=== PATIENT | female | born 1980 | race Caucasian/White ===

== ENCOUNTER 2017-11-20 16:30 | Emergency (ER) | payer BC, SELFPAY ==
[2017-11-20 17:18] LABS: Bilirubin Negative (Negative); Blood, Urine Moderate (Negative); Clarity TURBID (Clear); Glucose, Urine (Dipstick) Negative (Negative); Leukocyte Moderate (Negative); Nitrite Negative (Negative); Protein, Urine (Dipstick) 30 mg/dL (Neg-Trace); Specific Gravity, Urine 1.021 (1.002-1.036)
[2017-11-20 17:21] LABS: RBC/HPF GREATER THAN 50-TNTC HPF (0-3)
[2017-11-20 17:37] LABS: Hyaline Casts/LPF 0-3 HYALINE CAST LPF (0-3 Hyaline); Other Casts/LPF None Seen LPF (0-3 Hyaline)
[2017-11-20 17:38] LABS: Bacteria/HPF 2+ HPF (None Seen); Crystals/HPF 1+ AMORPH PHOS HPF (Negative)
[2017-11-20] MEDS ORDERED: Morphine 10 MG/ML VIAL ONE (18:00)
[2017-11-20 18:06] LABS: #Eosinphils 0.1 thou/uL (0.0-0.7); #Lymphocytes 2.9 thou/uL (1.20-3.40); #Monocytes 0.7 thou/uL (0.11-0.59); #Neutrophils 6.4 thou/uL (1.40-6.50); %Basophils 0.4 % (0.0-1.0); %Lymphocytes 28.4 % (21.0-51.0); %Monocytes 6.8 % (0.0-10.0); %Neutrophils 63.4 % (42.0-75.0); Hemoglobin 12.8 g/dL (12.0-16.0); Mean Corpuscular HGB CONC 32.5 g/dL (32.0-36.0); Mean Corpuscular Hemoglobin 25.6 pg (27.0-31.0); Mean Corpuscular Volume 78.6 fL (78.0-98.0); Platelet Count 295 thou/uL (130-400); RBC Distribution Width 12.8 % (11.5-14.5); Red Blood Cell (RBC) Count 5.02 mill/uL (4.20-5.40)
[2017-11-20] MEDS ORDERED: Ondansetron HCl/PF 4 MG/2 ML Vial ONE (18:15)
[2017-11-20 18:49] LABS: Pregnancy Test - Urine (BHCG) Negative (Negative); Pregu Control Background? CLEAR/WHITE (CLR/WHITE); Pregu Control Bar Appear? YES (CONTROL BAR); Specific Gravity 1.021 (1.002-1.036)
[2017-11-20 18:51] LABS: ALT (SGPT) 19 U/L (8-55); AST (SGOT) 18 U/L (5-34); Albumin 4.2 g/dL (3.5-5.0); Alkaline Phosphatase 78 U/L (40-150); Anion Gap 17 mmol/L (10-20); BUN (Urea Nitrogen) 15 mg/dL (7.0-18.7); Bilirubin, Total Less than 0.2 mg/dL (0.2-1.2); Calc. Creatinine Clearance 0 mL/min (70-130); Calcium 9.5 mg/dL (7.8-10.44); Carbon Dioxide 18 mmol/L (22-29); Chloride 109 mmol/L (98-107); Estimated GFR-MDRD 79; Glucose 114 mg/dL (70-105); Potassium 4.5 mmol/L (3.5-5.1); Protein, Total 7.2 g/dL (6.0-8.3); Sodium 139 mmol/L (136-145)
[2017-11-20] MEDS ORDERED: Ketorolac Tromethamine 30 MG/ML VIAL ONE (19:13)
[2017-11-20] MEDS ORDERED: Morphine 4 MG/ML VIAL ONE ×2 (19:13→22:56)
--- NOTE | 2017-11-20 21:48 | CT ---
CT OF ABDOMEN AND PELVIS PERFORMED WITHOUT CONTRAST ENHANCEMENT: 11/20/17 HISTORY: Severe right sided back pain onset 20 minutes prior to admission. Lung bases show some minimal linear atelectasis. The liver, spleen, pancreas and gallbladder regions appear unremarkable on this noncontrast study. Right and left adrenal glands are normal. Right and left kidneys are normal in size. There are no mariana al calculi. There is some mild right sided hydronephrosis and some dilatation to the right ureter. Th e distal course of the ureter is difficult to visualize but there does appear to be an approximately 3 mm calcification near the right ureterovesical junction very suspicious for a right UV junction stan culus. There is no significant periaortic or mesenteric adenopathy. A retroaortic left renal vein is incidentally seen. CT OF PELVIS PERFORMED WITHOUT CONTRAST ENHANCEMENT: The appendix is normal. No adenopathy, mass or free fluid. IMPRESSION: Approximately 3 mm right ureterovesical junction calculus associated with some mild right sided hydro nephrosis. POS: [facility]
== END 2017-11-20 23:04 | disposition home or self-care (01) ==
LOC: ERS 16:30
DX: N13.2 Hydronephrosis with renal and ureteral calculous obstruction (principal); F17.210 Nicotine dependence, cigarettes, uncomplicated; F41.9 Anxiety disorder, unspecified; F32.9 Major depressive disorder, single episode, unspecified; Z79.899 Other long term (current) drug therapy
CPT/HCPCS: 74176; 80053; 81003; 81015; 81025; 83690; 85025; 87086; 96361; 96374; 96375; 96376; J1885; J2270; J2405

== ENCOUNTER 2019-12-28 08:34 | Outpatient (CLI) | payer BC | END 2019-12-28 08:35 | disposition home or self-care (01) | LOC: DTY/OP 08:34 | PROVIDERS: ATTEND Surgery | DX: E66.01 Morbid (severe) obesity due to excess calories (principal) | CPT/HCPCS: 97802 ==

== ENCOUNTER 2020-01-24 12:35 | Outpatient (CLI) | payer BC | END 2020-01-24 12:36 | disposition home or self-care (01) | LOC: DTY/OP 12:35 | PROVIDERS: ATTEND Surgery | DX: E66.01 Morbid (severe) obesity due to excess calories (principal) | CPT/HCPCS: 97802 ==

== ENCOUNTER 2020-03-22 13:38 | Outpatient (CLI) | payer BC, OTHER | END 2020-03-22 13:39 | disposition home or self-care (01) | LOC: DTY/OP 13:38 | PROVIDERS: ATTEND Surgery | DX: E66.01 Morbid (severe) obesity due to excess calories (principal) | CPT/HCPCS: 97802 ==